=== PATIENT | female | born 1960 | race African-American/Black ===

== ENCOUNTER 2016-08-05 18:25 | Emergency (ER) | payer OTHER ==
[2016-08-05 19:01] LABS: BASOPHILS 0.1 %; BASOPHILS ABSOLUTE 0.01 10/3/uL (0.0-0.16); EOSINOPHILS 0.6 %; EOSINOPHILS ABSOLUTE 0.05 10/3/uL (0.0-0.53); ER CBC TAT 0 Hrs 16 Mins; HEMOGLOBIN 14.1 g/dL (12.0-16.0); IMMATURE GRANULOCYTES 0.4 %; IMMATURE GRANULOCYTES ABSOLUTE 0.03 10/3/uL (0.0-0.11); LYMPHOCYTES 28.7 %; LYMPHOCYTES ABSOLUTE 2.26 10/3/uL (0.67-4.30); MEAN CORPUS HGB CONC 33.6 g/dL (32.0-36.0); MEAN CORPUSCULAR HEMOGLOB 28.3 pg (26.0-34.0); MEAN CORPUSCULAR VOLUME 84.2 fL (80-100); MEAN PLATELET VOLUME 10.2 fL (9.2-13.0); MONOCYTES 10.7 %; MONOCYTES ABSOLUTE 0.84 10/3/uL (0.21-1.20); NEUTROPHILS 59.5 %; NEUTROPHILS ABSOLUTE 4.68 10/3/uL (2.02-8.40); PLATELET COUNT 236 10/3/uL (150-400); RBC DISTRIBUTION WIDTH 12.6 % (12.0-16.0); RED CELL COUNT 4.99 10/6/uL (4.0-5.6); WHITE BLOOD CELLS 7.9 10/3/uL (4.5-10.5)
[2016-08-05 19:02] LABS: ASCORBIC ACID (UR NOT ORDER) NEG (NEG); BILIRUBIN, URINE NEGATIVE (NEG); KETONE, URINE NEGATIVE (NEG); LEUKOCYTE ESTERASE(NOT OR TRACE (NEG); MANUAL DIFF NO %; NITRITE (URINE) NEG (NEG); WBC (NOT ORDERED) (RFLEX) 3 (0-5)
[2016-08-05 19:06] LABS: A/G RATIO 1.1 (0.7-1.9); ALKALINE PHOSPHATASE 68 U/L (45-117); BUN (BLOOD UREA NITROGEN) 14 MG/DL (6-23); CHLORIDE, SERUM 102 MMOL/L (96-112); CO2 (CARBON DIOXIDE) 30 MMOL/L (24-34); CREATININE 0.79 MG/DL (0.55-1.02); GFR AFRICAN AMERICAN 98 ML/MIN (>=60); GFR NON AFRICAN AMERICAN 85 ML/MIN (>=60); GLOBULIN 3.7 G/DL (2.5-4.1); GLUCOSE, SERUM 101 MG/DL (60-99); SGOT(AST) 18 U/L (5-40); SGPT(ALT) 22 U/L (5-65); SODIUM, SERUM 140 MMOL/L (135-148); TOTAL BILIRUBIN 1.9 MG/DL (0-1.2); TOTAL PROTEIN 7.7 G/DL (6.0-8.5)
[2016-08-05 19:10] LABS: POTASSIUM, SERUM 2.7 MMOL/L (3.5-5.3)
== END 2016-08-05 22:33 | disposition home or self-care (01) ==
LOC: ER 18:25
PROVIDERS: Emergency Medicine
DX: N39.0 Urinary tract infection, site not specified (principal); E87.6 Hypokalemia; K21.9 Gastro-esophageal reflux disease without esophagitis; Z88.0 Allergy status to penicillin
CPT/HCPCS: 80053; 81001; 83690; 85025; 96365; 96366; 96375; 99284; A9270-GY; J2405